=== PATIENT | female | born 2005 | race Caucasian/White ===

== ENCOUNTER 2024-07-04 17:10 | Emergency (ER) | payer OTHER ==
[2024-07-04 17:25] VITALS: BMI 26.9
[2024-07-04] MEDS ORDERED: ONDANSETRON 4 MG/2 ML VIAL ONE ×2 (17:52→22:14)
[2024-07-04] MEDS ORDERED: ACETAMINOPHEN INJECTION 100 ML ONE (17:52)
[2024-07-04] MEDS: ONDANSETRON 4 MG/2 ML VIAL IVPUSH ONE ×2 (18:05→22:19)
[2024-07-04] MEDS: ACETAMINOPHEN 1000 MG/100 ML BAG IVPB ONE (18:05)
[2024-07-04 19:08] LABS: HEMOGLOBIN 13.4 GM/dL (10.7-15.3); MCH 29.1 pg (25.7-33.7); MCHC 34.3 g/dl (32.0-36.0); MEAN CELL VOLUME 84.7 fl (80-96); MEAN PLT VOLUME 8.8 fl (7.5-11.1); PLATELET COUNT 418 10^3/uL (134-434); RDW 13.6 % (11.6-15.6); WHITE BLOOD COUNT 19.5 K/mm3 (4.0-10.0)
[2024-07-04 19:22] LABS: POTASSIUM 3.7 mmol/L (3.5-5.1)
[2024-07-04 19:25] LABS: ALBUMIN 5.1 g/dl (3.4-5.0)
[2024-07-04 19:26] LABS: CALCIUM 10.9 mg/dL (8.5-10.1)
[2024-07-04 19:29] LABS: CREATININE 0.7 mg/dL (0.55-1.3)
[2024-07-04 19:31] LABS: BILIRUBIN,TOTAL 0.7 mg/dL (0.2-1); TOT PROT 8.4 g/dl (6.4-8.2)
[2024-07-04] MEDS ORDERED: KETOROLAC TROMETHAMINE 30 MG/1 ML VIAL ONE (19:33)
[2024-07-04] MEDS ORDERED: morphine SULFATE 4 MG/ML VIAL ONE ×2 (19:37→22:33)
[2024-07-04 19:40] LABS: EPI CELLS 11 /uL (0-25.1); HYALINE CASTS 1 /uL (0-3.1); URINE APPEARANCE CLEAR; URINE BACTERIA 77 /uL (0-1359); URINE BILIRUBIN NEGATIVE (NEGATIVE); URINE COLOR YELLOW; URINE GLUCOSE (UA) NEGATIVE (NEGATIVE); URINE KETONE 4+ (NEGATIVE); URINE LEUK ESTERASE NEGATIVE (NEGATIVE); URINE NITRITE NEGATIVE (NEGATIVE); URINE PROTEIN 1+ (NEGATIVE); URINE WBC 15 /uL (0-25.8)
[2024-07-04] MEDS: KETOROLAC TROMETHAMINE 30 MG/1 ML VIAL IVPUSH ONE (19:42)
[2024-07-04] MEDS: morphine CARPU-JECT 4 MG/1 ML DISP.SYRIN IVPUSH ONE ×2 (19:43→22:38)
[2024-07-04 20:02] LABS: HIV INTERPRETATION NEGATIVE (NEGATIVE)
[2024-07-04 21:12] LABS: ANISOCYTOSIS 3+; MACROCYTOSIS 0
[2024-07-05 00:19] VITALS: BP 109/55; PULSE 70; RESP 16; TEMP 98.2
== END 2024-07-05 01:40 | disposition home or self-care (01) ==
LOC: JER 17:10
PROC: 3E033NZ Introduction of Analgesics, Hypnotics, Sedatives into Peripheral Vein, Percutaneous Approach (ICD-10-PCS; principal; 2024-07-04)
PROC: 3E0333Z Introduction of Anti-inflammatory into Peripheral Vein, Percutaneous Approach (ICD-10-PCS; 2024-07-04)
PROC: 3E033NZ Introduction of Analgesics, Hypnotics, Sedatives into Peripheral Vein, Percutaneous Approach (ICD-10-PCS; 2024-07-04)
PROC: 3E033NZ Introduction of Analgesics, Hypnotics, Sedatives into Peripheral Vein, Percutaneous Approach (ICD-10-PCS; 2024-07-04)
PROC: 3E033GC Introduction of Other Therapeutic Substance into Peripheral Vein, Percutaneous Approach (ICD-10-PCS; 2024-07-04)
PROC: 3E033GC Introduction of Other Therapeutic Substance into Peripheral Vein, Percutaneous Approach (ICD-10-PCS; 2024-07-04)
DX: R10.2 Pelvic and perineal pain (principal); R11.2 Nausea with vomiting, unspecified
CPT/HCPCS: 36415; 74177-TC; 76830-TC; 80053; 81003; 83690; 84703; 85025; 86803; 87086; 87186; 87389; 99285-25; J0131

== ENCOUNTER 2024-07-06 09:06 | Observation (INO) | payer OTHER ==
[2024-07-06] MEDS ORDERED: ONDANSETRON 4 MG/2 ML VIAL ONE (09:36)
[2024-07-06] MEDS ORDERED: ACETAMINOPHEN INJECTION 100 ML ONE (09:36)
[2024-07-06] MEDS ORDERED: FAMOTIDINE 20 MG/50 ML IVPB 20 MG/50 ML MG IVPB ONE (09:37)
[2024-07-06] MEDS: ACETAMINOPHEN 1000 MG/100 ML BAG IVPB ONE (09:54)
[2024-07-06] MEDS: FAMOTIDINE 20 MG/50 ML IVPB 20 MG/50 ML MG IVPB ONE (09:54)
[2024-07-06] MEDS: ONDANSETRON 4 MG/2 ML VIAL IVPUSH ONE (09:54)
[2024-07-06 10:12] LABS: BASO % 0.3 % (0-2.0); EOS % 0.2 % (0-4.5); HEMATOCRIT 40.6 % (32.4-45.2); HEMOGLOBIN 13.9 GM/dL (10.7-15.3); LYMPH % 10.7 % (8-40); MCHC 34.1 g/dl (32.0-36.0); MEAN CELL VOLUME 85.1 fl (80-96); MEAN PLT VOLUME 8.8 fl (7.5-11.1); NEUT % 84.8 % (42.8-82.8); PLATELET COUNT 414 10^3/uL (134-434); RBC 4.77 M/mm3 (3.60-5.2); RDW 13.3 % (11.6-15.6)
[2024-07-06] MEDS ORDERED: HALOPERIDOL LACTATE 5 MG/ML ONE (10:32)
[2024-07-06] MEDS: HALOPERIDOL LACTATE 5 MG/ML IM ONE (10:44)
[2024-07-06] MEDS: LACTATED RINGERS SOLUTION 1000 ML INFUS.BAG IV ONE (10:44)
[2024-07-06 10:45] LABS: POTASSIUM 3.4 mmol/L (3.5-5.1)
[2024-07-06 10:47] LABS: CALCIUM 10.1 mg/dL (8.5-10.1)
[2024-07-06 10:48] LABS: BLOOD UREA NITROGEN 10.5 mg/dL (7-18); MAGNESIUM 2.2 mg/dL (1.8-2.4)
[2024-07-06 10:51] LABS: CREATININE 0.8 mg/dL (0.55-1.3)
[2024-07-06 10:52] LABS: BILIRUBIN,TOTAL 0.7 mg/dL (0.2-1); TOT PROT 8.4 g/dl (6.4-8.2)
[2024-07-06] MEDS ORDERED: morphine SULFATE 4 MG/ML VIAL ONE (11:34)
[2024-07-06] MEDS ORDERED: METOCLOPRAMIDE HCL INJECTION 10 MG/2 ML VIAL ONE (11:34)
[2024-07-06] MEDS: METOCLOPRAMIDE HCL INJECTION 10 MG/2 ML VIAL IVPB ONE (11:43)
[2024-07-06] MEDS: morphine CARPU-JECT 4 MG/1 ML DISP.SYRIN IVPUSH ONE (11:43)
[2024-07-06] MEDS ORDERED: LACTATED RINGERS SOLUTION 1,000 ML IV SCH (12:00)
[2024-07-06] MEDS: morphine SULFATE 4 MG/ML VIAL IVPUSH ONE (13:42)
[2024-07-06] MEDS: PANTOPRAZOLE SODIUM 40 MG VIAL IVPUSH SCH (14:49)
[2024-07-06 15:46] LABS: HIV INTERPRETATION NEGATIVE (NEGATIVE)
[2024-07-06] MEDS: ONDANSETRON 4 MG/2 ML VIAL IVPUSH PRN (15:52)
[2024-07-06] MEDS: ACETAMINOPHEN 1000 MG/100 ML BAG IVPB PRN (16:25)
[2024-07-06] MEDS: LACTATED RINGERS SOLUTION 1,000 ML IV SCH (17:47)
[2024-07-06 21:21] VITALS: RESP 18
[2024-07-07] MEDS ORDERED: KETOROLAC TROMETHAMINE 30 MG/1 ML VIAL IVPUSH PRN ×2 (10:42→12:24)
[2024-07-07 10:54] LABS: HEMATOCRIT 35.8 % (32.4-45.2); HEMOGLOBIN 12.5 GM/dL (10.7-15.3); MCH 29.4 pg (25.7-33.7); MEAN CELL VOLUME 84.1 fl (80-96); MEAN PLT VOLUME 8.4 fl (7.5-11.1); PLATELET COUNT 339 10^3/uL (134-434); RBC 4.26 M/mm3 (3.60-5.2); RDW 13.3 % (11.6-15.6); WHITE BLOOD COUNT 7.6 K/mm3 (4.0-10.0)
[2024-07-07 11:12] LABS: POTASSIUM 3.2 mmol/L (3.5-5.1)
[2024-07-07 11:15] LABS: CALCIUM 9.3 mg/dL (8.5-10.1)
[2024-07-07 11:16] LABS: ALBUMIN 4.2 g/dl (3.4-5.0); BLOOD UREA NITROGEN 5.4 mg/dL (7-18); MAGNESIUM 2.1 mg/dL (1.8-2.4)
[2024-07-07] MEDS: MAG HYDROX/AL HYDROX/SIMETH 30 ML UNIT-DOSE CUP PO ONE (11:18)
[2024-07-07 11:19] LABS: CREATININE 0.6 mg/dL (0.55-1.3); PHOSPHOROUS 2.6 mg/dL (2.5-4.9)
[2024-07-07 11:20] LABS: BILIRUBIN,TOTAL 0.7 mg/dL (0.2-1); TOT PROT 6.8 g/dl (6.4-8.2)
[2024-07-07] MEDS: METOCLOPRAMIDE HCL INJECTION 10 MG/2 ML VIAL IVPUSH PRN (11:59)
[2024-07-07] MEDS ORDERED: ACETAMINOPHEN 1000 MG/100 ML BAG IVPB PRN (12:23)
[2024-07-07] MEDS ORDERED: METOCLOPRAMIDE HCL INJECTION 10 MG/2 ML VIAL IVPUSH PRN (20:32)
[2024-07-07] MEDS: KCL 10 MEQ IVPB 10 MEQ/100 ML INFUS.BAG IVPB SCH (20:35)
[2024-07-07] MEDS: SODIUM CHLORIDE 1,000 ML IV SCH (23:02)
[2024-07-08 09:46] LABS: INR 1.16 (0.83-1.09)
[2024-07-08 09:48] LABS: BASO % 0.6 % (0-2.0); EOS % 1.3 % (0-4.5); HEMATOCRIT 38.8 % (32.4-45.2); HEMOGLOBIN 13.2 GM/dL (10.7-15.3); LYMPH % 31.8 % (8-40); MCH 29.3 pg (25.7-33.7); MCHC 34.2 g/dl (32.0-36.0); MEAN CELL VOLUME 85.7 fl (80-96); MEAN PLT VOLUME 8.7 fl (7.5-11.1); MONO % 5.5 % (3.8-10.2); NEUT % 60.8 % (42.8-82.8); PLATELET COUNT 317 10^3/uL (134-434); RBC 4.52 M/mm3 (3.60-5.2); RDW 13.3 % (11.6-15.6); WHITE BLOOD COUNT 7.7 K/mm3 (4.0-10.0)
[2024-07-08 09:50] VITALS: BP 97/71; PULSE 65; TEMP 99.5
[2024-07-08 10:05] LABS: POTASSIUM 3.5 mmol/L (3.5-5.1)
[2024-07-08 10:10] LABS: BLOOD UREA NITROGEN 7.3 mg/dL (7-18); CALCIUM 9.1 mg/dL (8.5-10.1); MAGNESIUM 2.1 mg/dL (1.8-2.4)
[2024-07-08 10:13] LABS: CREATININE 0.6 mg/dL (0.55-1.3); PHOSPHOROUS 3.2 mg/dL (2.5-4.9)
[2024-07-08] MEDS ORDERED: MAG HYDROX/AL HYDROX/SIMETH -MYLANTA- ORAL SUSPENSION PO PRN ×2 (11:52→11:53)
[2024-07-08 14:38] VITALS: BMI 24.0
== END 2024-07-08 13:52 | disposition home or self-care (01) ==
LOC: JER 09:06 → JERBED 11:35 → J5S 12:44
PROVIDERS: ADMIT Internal Medicine; ATTEND Internal Medicine
PROC: 3E033NZ Introduction of Analgesics, Hypnotics, Sedatives into Peripheral Vein, Percutaneous Approach (ICD-10-PCS; principal; 2024-07-06)
PROC: 3E033GC Introduction of Other Therapeutic Substance into Peripheral Vein, Percutaneous Approach (ICD-10-PCS; 2024-07-06)
PROC: 3E023NZ Introduction of Analgesics, Hypnotics, Sedatives into Muscle, Percutaneous Approach (ICD-10-PCS; 2024-07-06)
PROC: 3E0337Z Introduction of Electrolytic and Water Balance Substance into Peripheral Vein, Percutaneous Approach (ICD-10-PCS; 2024-07-06)
DX: R11.2 Nausea with vomiting, unspecified (principal); R10.12 Left upper quadrant pain; F12.90 Cannabis use, unspecified, uncomplicated; R10.2 Pelvic and perineal pain
CPT/HCPCS: 36415; 74018-TC-FY; 76775-TC; 80048; 80053; 83036; 83690; 83735; 84100; 84703; 85025; 85027; 85610; 86803; 86850; 86900; 86901; 87389; 93005; 93010; 96361; 96365; 96372; 96375; 96376; 99285-25; G0378; J0131

== ENCOUNTER 2024-11-21 18:46 | Observation (INO) | payer OTHER ==
[2024-11-21 19:00] VITALS: BMI 25.7
[2024-11-21] MEDS ORDERED: ACETAMINOPHEN INJECTION 100 ML ONE (19:45)
[2024-11-21] MEDS ORDERED: ONDANSETRON 4 MG/2 ML VIAL ONE (19:46)
[2024-11-21] MEDS: SODIUM CHLORIDE 1,000 ML IV STA (19:51)
[2024-11-21] MEDS: ONDANSETRON 4 MG/2 ML VIAL IVPUSH ONE (19:51)
[2024-11-21] MEDS: ACETAMINOPHEN 1000 MG/100 ML BAG IVPB ONE (19:51)
[2024-11-21 19:56] LABS: ABSOLUTE IMMATURE GRANULOCYTES 0.07 x10^3/uL (0.0-0.031); BASOPHILS # 0.07 x10^3/uL (0.01-0.08); EOSINOPHIL % 0.1 % (0.7-5.8); EOSINOPHILS # 0.01 x10^3/uL (0.04-0.36); HEMATOCRIT 41.1 % (34.1-44.9); HEMOGLOBIN 14.2 g/dL (11.2-15.7); MCHC 34.5 g/dl (32.2-35.5); MEAN CELL VOLUME 83.5 fl (79.4-94.8); MONOCYTE # 0.83 x10^3/uL (0.24-0.86); MONOCYTE % 4.4 % (4.7-12.5); PLATELET COUNT 477 x10^3/uL (182-369)
[2024-11-21 20:15] LABS: POTASSIUM 3.4 mmol/L (3.5-5.1)
[2024-11-21 20:17] LABS: BLOOD UREA NITROGEN 9.4 mg/dL (7-18); CALCIUM 10.1 mg/dL (8.5-10.1)
[2024-11-21 20:20] LABS: CREATININE 0.7 mg/dL (0.55-1.3)
[2024-11-21 20:22] LABS: BILIRUBIN,TOTAL 0.6 mg/dL (0.2-1); TOT PROT 8.4 g/dl (6.4-8.2)
[2024-11-21] MEDS ORDERED: LORazepam 2 MG/ML SDV VIAL ONE (20:25)
[2024-11-21 21:04] LABS: HCG,QUALITATIVE URINE Negative
[2024-11-21 21:18] LABS: EPI CELLS 26 /uL (0-25.1); HYALINE CASTS 3 /uL (0-3.1); URINE APPEARANCE CLEAR; URINE BACTERIA 1845 /uL (0-1359); URINE BILIRUBIN NEGATIVE (NEGATIVE); URINE COLOR DK YELLOW; URINE GLUCOSE (UA) NEGATIVE (NEGATIVE); URINE KETONE 4+ (NEGATIVE); URINE LEUK ESTERASE NEGATIVE (NEGATIVE); URINE NITRITE NEGATIVE (NEGATIVE); URINE PROTEIN 1+ (NEGATIVE); URINE RBC 69 /uL (0-23.9); URINE UROBILINOGEN 0.2 mg/dL (0.2-1.0)
[2024-11-21] MEDS ORDERED: METOCLOPRAMIDE HCL INJECTION 10 MG/2 ML VIAL ONE (23:08)
[2024-11-21] MEDS: METOCLOPRAMIDE HCL INJECTION 10 MG/2 ML VIAL IVPUSH ONE (23:13)
[2024-11-21] MEDS: SODIUM CHLORIDE 500 ML IV STA (23:13)
[2024-11-21] MEDS ORDERED: KETOROLAC TROMETHAMINE 30 MG/1 ML VIAL ONE (23:14)
[2024-11-21] MEDS: KETOROLAC TROMETHAMINE 30 MG/1 ML VIAL IVPUSH ONE (23:17)
[2024-11-21] MEDS ORDERED: PROCHLORPERAZINE INJECTION 10 MG/2 ML VIAL ONE (23:41)
[2024-11-22] MEDS: PROCHLORPERAZINE INJECTION 10 MG/2 ML VIAL IVPB ONE (00:10)
[2024-11-22] MEDS ORDERED: ACETAMINOPHEN 1000 MG/100 ML BAG IVPB PRN (01:03)
[2024-11-22] MEDS: LACTATED RINGERS SOLUTION 1,000 ML IV SCH (01:34)
[2024-11-22] MEDS ORDERED: PIPERACILLIN/TAZOB 3.375 GM 3.375 GM in DEXTROSE 5%-WATER - 50 ML IVPB SCH (02:00)
[2024-11-22] MEDS: PIPERACILLIN/TAZOB 3.375 GM 3.375 GM in DEXTROSE 5%-WATER - 50 ML IVPB SCH (02:37)
[2024-11-22] MEDS: ONDANSETRON 4 MG/2 ML VIAL IVPUSH SCH (02:38)
[2024-11-22] MEDS: ONDANSETRON 4 MG/2 ML VIAL IVPB ONE (02:55)
[2024-11-22] MEDS: PANTOPRAZOLE SODIUM 40 MG VIAL IVPUSH ONE (02:59)
[2024-11-22] MEDS: PANTOPRAZOLE SODIUM 40 MG VIAL IVPUSH SCH ×2 (03:02→08:45)
[2024-11-22 05:18] LABS: METHADONE, UR NEGATIVE (NEGATIVE); OPIATES, URI NEGATIVE (NEGATIVE); PHENCYCLIDINE,URINE NEGATIVE (NEGATIVE); URINE BENZODIAZEPINES NEGATIVE (NEGATIVE)
[2024-11-22 05:19] LABS: URINE BARBITURATES NEGATIVE (NEGATIVE)
[2024-11-22] MEDS: SODIUM CHLORIDE 1,000 ML IV STA (05:23)
[2024-11-22 05:25] LABS: COCAINE, UR NEGATIVE (NEGATIVE); URINE AMPHETAMINES NEGATIVE (NEGATIVE)
[2024-11-22 14:18] VITALS: RESP 18
[2024-11-22 14:47] LABS: ABSOLUTE IMMATURE GRANULOCYTES 0.05 x10^3/uL (0.0-0.031); BASOPHILS # 0.04 x10^3/uL (0.01-0.08); EOSINOPHIL % 0.4 % (0.7-5.8); EOSINOPHILS # 0.06 x10^3/uL (0.04-0.36); HEMATOCRIT 34.2 % (34.1-44.9); HEMOGLOBIN 11.3 g/dL (11.2-15.7); MEAN CELL VOLUME 88.4 fl (79.4-94.8); MEAN PLT VOLUME 10.1 fl (9.4-12.3); MONOCYTE # 0.92 x10^3/uL (0.24-0.86); MONOCYTE % 6.6 % (4.7-12.5); PLATELET COUNT 316 x10^3/uL (182-369); RDW 12.4 % (12.1-16.5)
[2024-11-22 15:11] LABS: CALCIUM 8.9 mg/dL (8.5-10.1)
[2024-11-22 15:12] LABS: BLOOD UREA NITROGEN 5.2 mg/dL (7-18)
[2024-11-22 15:15] LABS: CREATININE 0.8 mg/dL (0.55-1.3)
[2024-11-22] MEDS: KCL 10 MEQ IVPB 10 MEQ/100 ML INFUS.BAG IVPB SCH (15:43)
[2024-11-22] MEDS: POTASSIUM CHLORIDE ORAL LIQUID 20 MEQ/15 ML PO ONE (15:43)
[2024-11-22 16:11] LABS: PHOSPHOROUS 3.5 mg/dL (2.5-4.9)
[2024-11-22] MEDS: PIPERACILLIN/TAZOB 3.375 GM 50 ML IVPB SCH (19:14)
[2024-11-23 08:44] VITALS: BP 109/65; PULSE 69; TEMP 99
[2024-11-23 08:55] LABS: ABSOLUTE IMMATURE GRANULOCYTES 0.01 x10^3/uL (0.0-0.031); BASOPHILS # 0.04 x10^3/uL (0.01-0.08); EOSINOPHIL % 0.9 % (0.7-5.8); EOSINOPHILS # 0.06 x10^3/uL (0.04-0.36); HEMATOCRIT 36.5 % (34.1-44.9); HEMOGLOBIN 12.3 g/dL (11.2-15.7); MCHC 33.7 g/dl (32.2-35.5); MEAN CELL VOLUME 86.3 fl (79.4-94.8); MEAN PLT VOLUME 9.9 fl (9.4-12.3); MONOCYTE # 0.45 x10^3/uL (0.24-0.86); MONOCYTE % 6.9 % (4.7-12.5); PLATELET COUNT 313 x10^3/uL (182-369); RDW 12.3 % (12.1-16.5)
[2024-11-23 09:14] LABS: POTASSIUM 3.6 mmol/L (3.5-5.1)
[2024-11-23 09:18] LABS: CALCIUM 9.3 mg/dL (8.5-10.1)
[2024-11-23 09:19] LABS: MAGNESIUM 2.2 mg/dL (1.8-2.4)
[2024-11-23 09:20] LABS: ALBUMIN 4.1 g/dl (3.4-5.0)
[2024-11-23 09:32] LABS: BILIRUBIN,TOTAL 0.7 mg/dL (0.2-1); CREATININE 0.6 mg/dL (0.55-1.3); PHOSPHOROUS 2.9 mg/dL (2.5-4.9); TOT PROT 6.9 g/dl (6.4-8.2)
== END 2024-11-23 14:55 | disposition home or self-care (01) ==
LOC: JER 18:46 → JERBED 11-22 00:05 → UNDOADMOB 11-22 00:05 → INTOOBSV 11-22 00:58 → OBSVTOIN 11-22 00:58 → J5S 11-22 01:06 → JERBED 11-22 01:06 → J5S 11-22 09:25
PROVIDERS: ADMIT Internal Medicine; ATTEND Internal Medicine
PROC: 3E033NZ Introduction of Analgesics, Hypnotics, Sedatives into Peripheral Vein, Percutaneous Approach (ICD-10-PCS; principal; 2024-11-22)
PROC: 3E0333Z Introduction of Anti-inflammatory into Peripheral Vein, Percutaneous Approach (ICD-10-PCS; 2024-11-22)
PROC: 3E03329 Introduction of Other Anti-infective into Peripheral Vein, Percutaneous Approach (ICD-10-PCS; 2024-11-22)
PROC: 3E0337Z Introduction of Electrolytic and Water Balance Substance into Peripheral Vein, Percutaneous Approach (ICD-10-PCS; 2024-11-22)
DX: K91.0 Vomiting following gastrointestinal surgery (principal); G89.18 Other acute postprocedural pain; R10.84 Generalized abdominal pain; D72.829 Elevated white blood cell count, unspecified
CPT/HCPCS: 36415; 71046-TC-FY; 74177-TC; 80048; 80053; 80307; 81003; 82607; 83605; 83690; 83735; 84100; 84439; 84443; 84703; 85025; 85651; 86140; 93005; 93010; 96361; 96365; 96366; 96367; 96375; 96376; 99285-25; G0378; J0131; Q9967